=== PATIENT | female | born 1935 | race Native Hawaiian/Other Pacific Islander ===

== ENCOUNTER 2018-07-18 21:05 | Emergency (ER) | payer OTHER ==
[~2018-07-18] VITALS: Ht 152.4 cm; Wt 64.9 kg
[2018-07-18 22:57] VITALS: BP 170/69; TEMP 98.3
== END 2018-07-18 22:58 | disposition home or self-care (01) ==
LOC: ED 21:05
DX: S42.212A Unspecified displaced fracture of surgical neck of left humerus, initial encounter for closed fracture (principal); W18.39XA Other fall on same level, initial encounter; Y92.89 Other specified places as the place of occurrence of the external cause
CPT/HCPCS: 99283

== ENCOUNTER 2018-08-09 11:45 | Emergency (ER) | payer OTHER ==
[~2018-08-09] VITALS: Ht 152.4 cm; Wt 64.9 kg
[2018-08-09 13:59] VITALS: BP 168/70; TEMP 98
== END 2018-08-09 14:00 | disposition home or self-care (01) ==
LOC: ED 11:45 → EDBD 11:45 → ED 14:00
DX: S22.32XA Fracture of one rib, left side, initial encounter for closed fracture (principal); S40.012A Contusion of left shoulder, initial encounter; W18.09XA Striking against other object with subsequent fall, initial encounter; Y92.89 Other specified places as the place of occurrence of the external cause
CPT/HCPCS: 99282

== ENCOUNTER 2022-08-05 19:01 | Emergency (ER) | payer OTHER ==
[~2022-08-05] VITALS: Ht 152.4 cm; Wt 54.4 kg
[2022-08-05 19:58] LABS: PLATELET COUNT 250 K/uL (152-353)
[2022-08-05 23:00] VITALS: BP 161/73; TEMP 97.8
== END 2022-08-05 23:00 | disposition short-term general hospital (02) ==
LOC: ED 19:01 → EDBD 19:01 → ED 23:00
PROVIDERS: Emergency Medicine Emergency Medical Services
DX: I21.4 Non-ST elevation (NSTEMI) myocardial infarction (principal); S42.295A Other nondisplaced fracture of upper end of left humerus, initial encounter for closed fracture; E03.8 Other specified hypothyroidism; I67.82 Cerebral ischemia; W01.0XXA Fall on same level from slipping, tripping and stumbling without subsequent striking against object, initial encounter; Y92.094 Garage of other non-institutional residence as the place of occurrence of the external cause
CPT/HCPCS: 80053; 81000; 82550; 83735; 84443; 84484; 85027; 93005; 96365; 99284

== ENCOUNTER 2023-01-26 11:36 | Observation (INO) | payer OTHER ==
[~2023-01-26] VITALS: Ht 160 cm; Wt 62.3 kg
[2023-01-26] VITALS (11 sets, daily range): BP systolic 87–147; BP diastolic 33–78; TEMP 97.5–98; Ht 160 cm; Wt 62.3 kg
[2023-01-26 12:07] LABS: PLATELET COUNT 233 K/uL (152-353)
[2023-01-26 12:13] LABS: POTASSIUM 3.9 mmol/L (3.6-5.2)
[2023-01-26] MEDS ORDERED: EUTHYROX50 MCG PO (16:19)
[2023-01-26] MEDS ORDERED: LIPITOR20 MG PO (16:19)
[2023-01-26] MEDS ORDERED: SPIRONOLACT25 MG PO (16:21)
[2023-01-26] MEDS ORDERED: VITAMIN B-12500 MCG PO (16:22)
[2023-01-26] MEDS ORDERED: BRIMONIDINE0.2 % OPTH (16:22)
[2023-01-26] MEDS ORDERED: LATANOPROST0.005 % OPTH (16:23)
[2023-01-26] MEDS ORDERED: ASA LOW DOSE81 MG PO (16:23)
[2023-01-26] MEDS ORDERED: COZAAR100 MG PO (16:23)
[2023-01-26] MEDS ORDERED: DONEPEZIL HYDRO10 MG (16:29)
[2023-01-27] VITALS: BP 115/41; TEMP 96.3
[2023-01-27 04:00] VITALS: BP 143/59; TEMP 97.3
[2023-01-27 07:22] LABS: PLATELET COUNT 217 K/uL (152-353)
[2023-01-27 07:28] LABS: POTASSIUM 3.9 mmol/L (3.6-5.2)
[2023-01-27 07:55] VITALS: BP 172/61; TEMP 97.9
[2023-01-27] MEDS ORDERED: LOSA50TA PO (08:12)
== END 2023-01-27 08:37 | disposition home or self-care (01) ==
LOC: ED 11:36 → MED/SURG 13:00
PROVIDERS: Family Medicine; ADMIT Nurse Practitioner Family; ATTEND Internal Medicine
DX: N17.8 Other acute kidney failure (principal); R55 Syncope and collapse; I95.89 Other hypotension; E86.0 Dehydration; E03.8 Other specified hypothyroidism; H40.89 Other specified glaucoma; N18.9 Chronic kidney disease, unspecified; I12.9 Hypertensive chronic kidney disease with stage 1 through stage 4 chronic kidney disease, or unspecified chronic kidney disease
CPT/HCPCS: 80048; 80053; 82550; 84443; 84484; 85027; 93005; 96360; 99221; 99284; G0378